=== PATIENT | female | born 1960 | race Caucasian/White ===

== ENCOUNTER 2016-11-06 16:09 | Emergency (ER) | payer MEDICAID ==
[2016-11-06 16:37] VITALS: BP 125/105
--- NOTE | 2016-11-06 17:36 | EDM.PDOC ---
ED HPI HEAD INJURY - General Chief Complaint: Head Injury Stated Complaint: FELL OUT OF BED/HIT HEAD Time Seen by Provider: 11/06/16 16:50 Source: Reports: Patient, Family History Limitations: Reports: No limitations - History of Present Illness INITIAL COMMENTS - FREE TEXT/NARRATIVE: 56-year-old female rolled out of bed last night striking her right head against the corner of a night stand behind her ear. Today she has some bruising and swelling and seems slightly confused so her wanted her checked out. She looks active and neurologically normal. No nausea or vomiting, she does not believe she had loss of consciousness. Location: Reports: occipital Severity: mild Place: home Associated Symptoms: Reports: confused. Denies: nausea/vomiting, weakness, loss of consciousness, dizziness - Related Data Allergies/ADRs: Allergies Allergy/AdvReac Type Severity Reaction Status Date / Time bacitracin [From Cortisporin] Allergy Itching Verified 04/05/16 13:17 bacitracin zinc Allergy Itching Verified 04/05/16 13:17 [From Cortisporin] erythromycin base Allergy Hives Verified 04/05/16 13:17 [Erythromycin Base] hydrocortisone Allergy Itching Verified 04/05/16 13:17 [From Cortisporin] neomycin [From Cortisporin] Allergy Itching Verified 04/05/16 13:17 neomycin sulfate Allergy Itching Verified 04/05/16 13:17 [From Cortisporin] polymyxin B Allergy Itching Verified 04/05/16 13:17 [From Cortisporin] polymyxin B sulfate Allergy Itching Verified 04/05/16 13:17 [From Cortisporin] sulfamethoxazole Allergy Vomiting Verified 04/05/16 13:17 [From Bactrim] trimethoprim [From Bactrim] Allergy Vomiting Verified 04/05/16 13:17 Home Meds: Home Meds Sertraline HCl 100 mg PO DAILY 04/06/13 [History] Cholecalciferol (Vitamin D3) [Vitamin D3] 1,000 unit PO DAILY 07/15/13 [History] [place]-3 Fatty Acids [[place]-3] 1,000 mg PO DAILY 07/15/13 [History] Lactobacillus Acidophilus [Probiotic] 1 each PO TID 07/23/14 [History] Cyclobenzaprine HCl [Cyclobenzaprine HCl] 10 mg PO ASDIRECTED PRN 11/06/16 [ History] Past Medical History HEENT History: Reports: Hard of hearing, Impaired vision Cardiovascular History: Reports: None Respiratory History: Reports: None Gastrointestinal History: Reports: Chronic diarrhea Genitourinary History: Reports: None 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: Musculoskeletal History: Reports: Other (see below) Other Musculoskeletal History: osteopenia Neurological History: Reports: Head trauma Psychiatric History: Reports: None Endocrine/Metabolic History: Reports: None Hematologic History: Reports: None Immunologic History: Reports: None Oncologic (Cancer) History: Reports: Basal cell carcinoma Dermatologic History: Reports: None - Infectious Disease History Infectious Disease History: Reports: None - Past Surgical History Head Surgeries/Procedures: Reports: None HEENT Surgical History: Reports: Other (see below) Other HEENT Surgeries/Procedures: PT HAD RIGHT EAR SURGERY Cardiovascular Surgical History: Reports: None GI Surgical History: Reports: Colonoscopy Female Surgical History: Reports: section, D&C Endocrine Surgical History: Reports: None Neurological Surgical History: Reports: None Musculoskeletal Surgical History: Reports: Knee replacement, Other (see below) Other Musculoskeletal Surgeries/Procedures:: left arm plates and screws Oncologic Surgical History: Reports: None Dermatological Surgical History: Reports: None Social & Family History - Family History HEENT: Reports: Glaucoma, Impaired vision Cardiac: Reports: CAD, [place] Respiratory: Reports: None GI: Reports: GERD : Reports: None OBGYN: Reports: None Musculoskeletal: Reports: None Neurological: Reports: None Psychiatric: Reports: None Endocrine/Metabolic: Reports: Hypothyroidism Hematologic: Reports: None Immunologic: Reports: None Dermatologic: Reports: None Oncologic: Reports: None - Tobacco Use Smoking Status *Q: Never Smoker Years of Tobacco use: 6 Packs/Tins Daily: 1 Used Tobacco, but Quit: Yes Month Tobacco Last Used: 34 YEARS AGO Second Hand Smoke Exposure: No - Caffeine Use Caffeine Use: Reports: Energy drinks - Alcohol Use Days Per Week of Alcohol Use: 7 Number of Drinks Per Day: 3 Total Drinks Per Week: 21 - Recreational Drug Use Recreational Drug Use: No ED ROS GENERAL - Review of Systems Review Of Systems: See Below Constitutional: Denies: fever, chills, malaise HEENT: Reports: Other (Bruising and pain behind her right ear) Respiratory: Reports: No Symptoms Cardiovascular: Reports: No symptoms GI/Abdominal: Reports: No symptoms Skin: Reports: bruising Neurological: Reports: Headache ED EXAM, HEAD INJURY - Physical Exam Exam: See Below Exam Limited By: No limitations General Appearance: alert, no apparent distress Head: scalp ecchymosis (She has scalp ecchymosis behind the right ear with slight swelling and hematoma) Eyes: bilateral eye: normal inspection Neck: non-tender, full range of motion Respiratory: no respiratory distress, lungs clear Cardiovascular: regular rate, rhythm Extremities: no evidence of injury Neurologic: no motor/sensory deficits, normal mood/affect, other (Romberg is negative, no pronator drift) Course - Vital Signs Last Recorded V/S: Last Vital Signs Temp 97.9 F 11/06/16 16:45 Pulse 94 11/06/16 16:45 Resp 16 11/06/16 16:45 BP 125/105 H 11/06/16 16:45 Pulse Ox 100 11/06/16 16:45 - Re-Assessments/Exams Free Text/Narrative Re-Assessment/Exam: 11/06/16 17:[address] of the head was done without contrast which showed a scalp hematoma but no other acute findings. Patient was reassured and can treat the symptoms locally with cool compresses and ibuprofen. Departure - Departure Time of Disposition: 17:41 Disposition: Home, Self-Care 01 Condition: good Clinical Impression: Scalp hematoma Qualifiers: Encounter type: initial encounter Qualified Code(s): S00.03XA - Contusion of scalp, initial encounter Instructions: Head Injury, Adult, [id number] Referrals: PCP,None [Primary Care Provider] - Forms: ED Department Discharge Care Plan Goals: Cool compresses to the bruised area may help along with ibuprofen. Increase activity as tolerated and return anytime if worsening or concerns.
== END 2016-11-06 17:41 | disposition home or self-care (01) ==
LOC: JP.ED 16:09
DX: S00.03XA Contusion of scalp, initial encounter (principal); Z79.899 Other long term (current) drug therapy; Z88.8 Allergy status to other drugs, medicaments and biological substances; W22.8XXA Striking against or struck by other objects, initial encounter; W06.XXXA Fall from bed, initial encounter; Z88.1 Allergy status to other antibiotic agents
CPT/HCPCS: 70450; 99284-25

== ENCOUNTER 2020-02-06 16:55 | Emergency (ER) | payer MEDICAID ==
--- NOTE | 2020-02-06 17:36 | EDM.PDOC ---
ED HPI GENERAL MEDICAL PROBLEM - General Chief Complaint: Lower Extremity Injury/Pain Stated Complaint: MEDICAL VIA NORTH Time Seen by Provider: 02/06/20 17:31 Source of Information: Reports: Patient History Limitations: Reports: Altered Mental Status (alcohol intoxication and medicated by EMS (Fentanyl and Ketamine)) - History of Present Illness INITIAL COMMENTS - FREE TEXT/NARRATIVE: 59 year old female present to [facility] via [facility] due to fall and right leg pain. Patient called EMS due to fall and leg pain. Patient has been evaluated for her right knee pain. She is unsure if her knee gave out. Patient was unable to report to EMS how she fell. Patient was given IV pain medications (fentanyl and ketamine) by EMS. Patient is unable to give any account of her fall or is aware that she leg hurts. No one was home at the time of her fall, unwitnessed. Patient is unable to answer question with any valid answers. Unable to obtain ROS current, past medical history, medications. Patient denies pain and moving legs during examination. Right Hip Pain Score (Numeric/FACES): 5 - Related Data Allergies Allergy/AdvReac Type Severity Reaction Status Date / Time bacitracin [From Cortisporin] Allergy Itching Verified 02/06/20 17:02 bacitracin zinc Allergy Itching Verified 02/06/20 17:02 [From Cortisporin] erythromycin base Allergy Hives Verified 02/06/20 17:02 [Erythromycin Base] hydrocortisone Allergy Itching Verified 02/06/20 17:02 [From Cortisporin] neomycin [From Cortisporin] Allergy Itching Verified 02/06/20 17:02 neomycin sulfate Allergy Itching Verified 02/06/20 17:02 [From Cortisporin] polymyxin B Allergy Itching Verified 02/06/20 17:02 [From Cortisporin] polymyxin B sulfate Allergy Itching Verified 02/06/20 17:02 [From Cortisporin] sulfamethoxazole Allergy Vomiting Verified 02/06/20 17:02 [From Bactrim] trimethoprim [From Bactrim] Allergy Vomiting Verified 02/06/20 17:02 Home Meds: Home Meds Sertraline HCl 100 mg PO DAILY 04/06/13 [History] Cholecalciferol (Vitamin D3) [Vitamin D3] 1,000 unit PO DAILY 12/18/13 [History] [place]-3 Fatty Acids [[place]-3] 1,000 mg PO DAILY 07/15/13 [History] Lactobacillus Acidophilus [Probiotic] 1 each PO TID 07/23/14 [History] Omeprazole 40 mg PO DAILY 05/07/18 [History] Latanoprost 1 drop EYEBOTH BEDTIME 02/06/20 [History] Past Medical History HEENT History: Reports: Hard of Hearing, Impaired Vision Other HEENT History: tympanic perforation. 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: Musculoskeletal History: Reports: Fracture, Osteoarthritis, Other (See Below) Other Musculoskeletal History: osteopenia right wrist carpal tunnel Neurological History: Reports: Head Trauma Psychiatric History: Reports: Addiction, Depression, PTSD Other Psychiatric History: ETOH Endocrine/Metabolic History: Reports: Obesity/BMI 30+, Other (See Below) Other Endocrine/Metabolic History: thyroid nodule Hematologic History: Reports: None Other Hematologic History: macrocytosis Immunologic History: Reports: None Oncologic (Cancer) History: Reports: Basal Cell Carcinoma Dermatologic History: Reports: None - Infectious Disease History Infectious Disease History: Reports: MRSA - Past Surgical History HEENT Surgical History: Reports: None Cardiovascular Surgical History: Reports: None GI Surgical History: Reports: None Female Surgical History: Reports: Section, D&C Endocrine Surgical History: Reports: None Neurological Surgical History: Reports: None Musculoskeletal Surgical History: Reports: Knee Replacement, Other (See Below) Oncologic Surgical History: Reports: None Dermatological Surgical History: Reports: None Social & Family History - Family History HEENT: Reports: Glaucoma, Impaired Vision Cardiac: Reports: CAD, [place] Respiratory: Reports: None GI: Reports: GERD : Reports: None OBGYN: Reports: None Musculoskeletal: Reports: None Neurological: Reports: None Psychiatric: Reports: None Endocrine/Metabolic: Reports: Hypothyroidism Hematologic: Reports: None Immunologic: Reports: None Dermatologic: Reports: None Oncologic: Reports: None - Tobacco Use Smoking Status *Q: Never Smoker - Caffeine Use Caffeine Use: Reports: None - Alcohol Use Days Per Week of Alcohol Use: 7 Number of Drinks Per Day: 7 Total Drinks Per Week: 49 - Recreational Drug Use Recreational Drug Use: No Review of Systems - Review of Systems Review Of Systems: Unable To Obtain Reason Not Obtained: intoxicated and medicated per EMS ED EXAM, GENERAL - Physical Exam Exam: See Below Exam Limited By: Altered Mental Status (alchol intoxication and medicated by EMS fentanyl and ketamine) General Appearance: Alert, Other (medicated and slurring speach. Nonsensical answers with clear words and some slurring. ) Eye Exam: Bilateral Eye: EOMI Ears: Normal External Exam, Hearing Grossly Normal Nose: Normal Inspection Throat/Mouth: Normal Inspection, Other (mouth dry) Head: Atraumatic Neck: Normal Inspection Respiratory/Chest: Lungs Clear Cardiovascular: Regular Rate, Rhythm GI/Abdominal: Normal Bowel Sounds, Soft, Non-Tender (Female) Exam: Deferred Rectal (Female) Exam: Deferred Extremities: Other (Right leg seems to be shortened and externally rotated but patient dnies pain with palpation or movement. Body language tells a different story and seems to wince with pain and movement. ) Neurological: Inattentive, Confused Course - Vital Signs Last Recorded V/S: Last Vital Signs Temp 36.2 C 02/06/20 20:35 Pulse 94 02/06/20 21:13 Resp 16 02/06/20 21:13 BP 117/85 02/06/20 21:13 Pulse Ox 91 L 02/06/20 21:13 - Orders/Labs/Meds Orders: Active Orders 24 hr Category Date Time Status [place] Catheter Insertion [Insert Urinary Catheter] [OM. Care 02/06/20 19:45 Ordered PC] Q24H Urinary Catheter Assessment [RC] ASDIRECTED Care 02/06/20 19:39 Active Sodium Chloride 0.9% [Normal Saline] 1,000 ml Med 02/06/20 18:45 Active IV ASDIRECTED Medication Orders Sodium Chloride (Normal Saline) 1,000 mls @ 500 mls/hr IV ASDIRECTED WOODROW Last Admin: 02/06/20 19:47 Dose: 500 mls/hr Documented by: SHAYNE Labs: Laboratory Tests 02/06/20 02/06/20 02/06/20 Range/Units 18:10 18:10 18:10 WBC 7.1 (4.5-11.0) K/uL RBC 2.96 L (3.30-5.50) M/uL Hgb 9.9 L (12.0-15.0) g/dL Hct 30.5 L (36.0-48.0) % MCV 103 H (80-98) fL MCH 33 H (27-31) pg MCHC 33 (32-36) % Plt Count 90 L (150-400) K/uL Neut % (Auto) 86 H (36-66) % Lymph % (Auto) 7 L (24-44) % Scott % (Auto) 7 H (2-6) % Eos % (Auto) 0 L (2-4) % Baso % (Auto) 1 (0-1) % PT (9.5-12.0) sec INR (0.80-1.20) APTT 26.7 L (27.0-36.0) sec Sodium 139 L (140-148) mmol/L Potassium 4.2 (3.6-5.2) mmol/L Chloride 101 (100-108) mmol/L Carbon Dioxide 22 (21-32) mmol/L Anion Gap 20.2 H (5.0-14.0) mmol/L BUN 9 (7-18) mg/dL Creatinine 0.8 (0.6-1.0) mg/dL Est Cr Clr Drug Dosing 55.06 mL/min Estimated GFR (MDRD) > 60 (>60) Glucose 140 H (74-106) mg/dL Calcium 8.4 L (8.5-10.1) mg/dL Ethyl Alcohol mg/dL 02/06/20 02/06/20 Range/Units 18:10 18:10 WBC (4.5-11.0) K/uL RBC (3.30-5.50) M/uL Hgb (12.0-15.0) g/dL Hct (36.0-48.0) % MCV (80-98) fL MCH (27-31) pg MCHC (32-36) % Plt Count (150-400) K/uL Neut % (Auto) (36-66) % Lymph % (Auto) (24-44) % Scott % (Auto) (2-6) % Eos % (Auto) (2-4) % Baso % (Auto) (0-1) % PT 11.1 (9.5-12.0) sec INR 1.03 (0.80-1.20) APTT (27.0-36.0) sec Sodium (140-148) mmol/L Potassium (3.6-5.2) mmol/L Chloride (100-108) mmol/L Carbon Dioxide (21-32) mmol/L Anion Gap (5.0-14.0) mmol/L BUN (7-18) mg/dL Creatinine (0.6-1.0) mg/dL Est Cr Clr Drug Dosing mL/min Estimated GFR (MDRD) (>60) Glucose (74-106) mg/dL Calcium (8.5-10.1) mg/dL Ethyl Alcohol 227 mg/dL Meds: Medications Generic Name Dose Route Start Last Admin Trade Name Freq PRN Reason Stop Dose Admin Sodium Chloride 1,000 mls @ 500 mls/hr 02/06/20 18:45 02/06/20 19:47 Normal Saline IV 500 mls/hr ASDIRECTED WOODROW Administration Discontinued Medications Generic Name Dose Route Start Last Admin Trade Name Freq PRN Reason Stop Dose Admin Fentanyl 50 mcg 02/06/20 19:40 Sublimaze IVPUSH 02/06/20 19:41 ONETIME ONE Lorazepam 2 mg 02/06/20 19:19 02/06/20 19:48 Ativan IVPUSH 02/06/20 19:20 2 mg ONETIME ONE Administration - Radiology Interpretation Free Text/Narrative:: Right hip/knee XR: noting mid shaft femur fracture with 2-3cm displacement. Images read by me during ER visit and reviewed with ER MD available. - Re-Assessments/Exams Free Text/Narrative Re-Assessment/Exam: Family requested patient be kept closer to home and would like her transferred to [facility] if care can be completed. Called [facility]: Got a voice mail to leave a message x 2. Left a message for return phone call about orthopedic transfer. 02/06/20 19:14 Son is present in ER exam room. Showed son the film noting 2-3 cm displaced with overlap of a right mid-shaft femur fracture. Son verbalized concern about mother starting to get DT shakes and seizures with concern regarding Alcohol withdrawal seizures. Patient was hospitalized in the ICU for 7 days, without need for intubation due to alcohol use during last hospitalization. Mother has gone to three different alcohol treatment facilities which she has left early and not completed full inpatient treatment course. Family may be interested in reconsidering revisiting alcohol treatment options. 02/06/20 19:21 [facility] returned phone call regarding transfer for Chronic Alcoholism with known h/o DT withdrawal in addition to midshaft right femur fracture due to fall. Hospitalist Nasir [place] acceptance to ICU if CT Head is clear, Contact Nurse Regrind Mill Operator with CT report. Dr Garcia, manager social responsibility Orthopedist is contacted. Orthopedic surgeon requested hair traction splint applied for transport to ensure immobilization. Update son regarding Nasir acceptance if CT Head is clear. Patient given Ativan 2mg for concerns regarding withdrawal, resting. 02/06/20 19:35-20:00 Son was informed that CT Head showed on acute trauma sequelae, or head bleed. Called [facility] regarding normal CT head and transfer was requested. Right leg traction splint was applied to bring leg to length and improved pain. Patient tolerated well with Ativan. Fentanyl is ordered if needed for additional pain relief. Patient remains vitally stable and appears comfortable despite acute femur fracture. 02/06/20 20:35 EMS arrived for transport. 02/06/20 21:26 Departure - Departure Time of Disposition: 21:25 Disposition: DC/Tfer to [facility] 02 Clinical Impression: Alcohol abuse, Alcohol withdrawal seizure Fall Qualifiers: Encounter type: initial encounter Qualified Code(s): W19.XXXA - Unspecified fall, initial encounter Femur fracture, right Qualifiers: Femur location: shaft Fracture type: closed Fracture morphology: transverse - Discharge Information Instructions: Alcohol Use Disorder, Femoral Shaft Fracture Referrals: PCP,None [Primary Care Provider] - Forms: ED Department Discharge Sepsis Event Note (ED) - Evaluation Sepsis Screening Result: No Definite Risk - Focused Exam Vital Signs: Vital Signs Temp Pulse Resp BP Pulse Ox 02/06/20 21:13 94 16 117/85 91 L 02/06/20 20:35 36.2 C 91 16 123/80 95 02/06/20 19:32 94 16 128/74 95 02/06/20 16:59 35.6 C L 94 16 133/63 95 - My Orders Last 24 Hours: My Active Orders 02/06/20 18:45 Sodium Chloride 0.9% [Normal Saline] 1,000 ml IV ASDIRECTED 02/06/20 19:39 Urinary Catheter Assessment [RC] ASDIRECTED 02/06/20 19:45 [place] Catheter Insertion [Insert Urinary Catheter] [OM.PC] Q24H - Assessment/Plan Last 24 Hours: My Active Orders 02/06/20 18:45 Sodium Chloride 0.9% [Normal Saline] 1,000 ml IV ASDIRECTED 02/06/20 19:39 Urinary Catheter Assessment [RC] ASDIRECTED 02/06/20 19:45 [place] Catheter Insertion [Insert Urinary Catheter] [OM.PC] Q24H
[2020-02-06] MEDS ORDERED: Sodium Chloride 0.9% 1,000 ML IV SCH (18:45)
[2020-02-06] MEDS ORDERED: LORazepam 2 MG/ML SDV IVPUSH ONE (19:19)
[2020-02-06] MEDS ORDERED: fentaNYL 100 MCG/2 ML SDV IVPUSH ONE (19:40)
--- NOTE | 2020-02-06 19:49 | CRLCR ---
Indication: Trauma Technique: An AP view of the pelvis was obtained as well as a lateral view of the right hip. Comparison: None Findings: The pelvis proper and the right hip joint proper appear normal. There is a transverse fracture of the right femur which is angulated and foreshortened. This is located approximately 17 centimeters distal to the greater trochanter. Impression: Right femur fracture. The hip joint proper and the pelvis appear normal Dictated by Shaan Iqbal MD @ Feb 06 2020 7:46PM Signed by Dr. Shaan Iqbal @ Feb 06 2020 7:47PM
--- NOTE | 2020-02-06 20:30 | CRLCT ---
INDICATION: Fall COMPARISON: November 06, 2016 TECHNIQUE: CT examination of the head was performed as axial sections without intravenous contrast. Images were obtained from the vertex of the skull through the skull base. Please note that all CT scans at this facility use dose modulation, iterative reconstruction, and/or weight-based dosing when appropriate to reduce radiation dose to as low as reasonably achievable. FINDINGS: The brain shows no sign of mass lesion, mass effect, hemorrhage, or edema. There are involutional changes. There is moderate cortical atrophy and there is moderate white matter disease. There is no hydrocephalus. There is also cerebellar atrophy. The visualized portions of the orbits are normal in appearance. The osseous structures are normal in appearance with no sign of abnormality in the skull base or calvarium. IMPRESSION: Involutional changes. No acute-appearing findings. Please note that all CT scans at this facility use dose modulation, iterative reconstruction, and/or weight-based dosing when appropriate to reduce radiation dose to as low as reasonably achievable. Dictated by Shaan Iqbal MD @ Feb 06 2020 8:27PM Signed by Dr. Shaan Iqbal @ Feb 06 2020 8:29PM
[2020-02-06 21:14] VITALS: BP 117/85; PULSE 94
== END 2020-02-06 22:21 ==
LOC: JP.ED 16:55
DX: S72.321A Displaced transverse fracture of shaft of right femur, initial encounter for closed fracture (principal); F10.239 Alcohol dependence with withdrawal, unspecified; R56.9 Unspecified convulsions; Z88.1 Allergy status to other antibiotic agents; Z88.2 Allergy status to sulfonamides; Z79.899 Other long term (current) drug therapy; E66.9 Obesity, unspecified; F32.9 Major depressive disorder, single episode, unspecified; F43.10 Post-traumatic stress disorder, unspecified; Z68.28 Body mass index [BMI] 28.0-28.9, adult; Y90.7 Blood alcohol level of 200-239 mg/100 ml; W19.XXXA Unspecified fall, initial encounter; Y92.009 Unspecified place in unspecified non-institutional (private) residence as the place of occurrence of the external cause
CPT/HCPCS: 36415; 51702; 70450; 73501; 80048; 80307; 85025; 85610; 85730; 96361; 96374; 99285; J2060; J7030

== ENCOUNTER → 2020-06-03 | Day surgery (SDC) | payer MEDICAID ==
[~2020-06-03] MED LIST: Midazolam 1 MG/ML 2 ML SDV ONE; Propofol 200 MG/20 ML SDV ONE; Sodium Chloride 0.9% 1,000 ML IV SCH; fentaNYL 100 MCG/2 ML SDV ONE
[2020-06-03 10:28] VITALS: BP 104/64; PULSE 85
--- NOTE | 2020-06-03 12:48 | OR ---
DATE OF PROCEDURE: 06/03/2020 SURGEON: Naresh Mancia MD PROCEDURE: Esophagogastroduodenoscopy. FINDINGS: 1. Small concentric ring at the gastroesophageal junction (biopsied multiple times using cold biopsy forceps). 2. Dilation of ring with 45-Norwegian. COMPLICATIONS: None. COOK ICE CREAM: None. ANESTHESIA: MAC. PREOPERATIVE DIAGNOSIS: Dysphagia. POSTOPERATIVE DIAGNOSIS: Dysphagia. RISKS: Risks, benefits, alternatives, and limitations including but not limited to infection, bleeding, and perforation were explained to the patient, and she wished to proceed. PROCEDURE IN DETAIL: The patient was placed in left lateral decubitus position. EGD scope was introduced and advanced atraumatically to second part of the duodenum. No evidence of duodenitis or ulceration. Within stomach itself, no evidence of gastritis or ulceration. The patient had a small hiatal hernia. At the GE junction, there was a ring noted. This was biopsied in multiple quadrants. This was then dilated with a 45-Norwegian balloon to stage 3. No evidence of enterotomy or injury was noted. The esophagus was normal. The air was removed. The patient the tolerated the procedure well. Naresh Mancia MD /[id number]
== END ==
LOC: JP.SDS 06:58
PROVIDERS: ATTEND Surgery
DX: K31.89 Other diseases of stomach and duodenum (principal); K22.2 Esophageal obstruction; K44.9 Diaphragmatic hernia without obstruction or gangrene
CPT/HCPCS: 43239; 43249; J2250; J2704; J3010; J7030; 88305; 88312

== ENCOUNTER 2021-06-26 11:22 | Emergency (ER) | payer MEDICAID ==
[2021-06-26 13:01] VITALS: BP 117/90; PULSE 106
[2021-06-26] MEDS ORDERED: Ketorolac 30 MG/ML SDV IM ONE (13:42)
[2021-06-26] MEDS ORDERED: Acetaminophen/HYDROcodone 325-5 MG Tab PO ONE (13:42)
[2021-06-26] MEDS ORDERED: Gabapentin 100 MG Cap PO ONE (13:43)
--- NOTE | 2021-06-26 13:50 | EDM.PDOC ---
ED HPI GENERAL MEDICAL PROBLEM - General Chief Complaint: Lower Extremity Injury/Pain Stated Complaint: PAIN IN LEG Time Seen by Provider: 06/26/21 13:30 Source of Information: Reports: Patient, Old Records, RN History Limitations: Reports: No Limitations - History of Present Illness INITIAL COMMENTS - FREE TEXT/NARRATIVE: 61 yo female presents with L lateral thigh pain. Sx's getting worse over the past week not associated with injury. Not painful to touch this area. Is hard to walk. 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) - Related Data Allergies Allergy/AdvReac Type Severity Reaction Status Date / Time bacitracin [From Cortisporin] Allergy Itching Verified 06/26/21 13:12 bacitracin zinc Allergy Itching Verified 06/26/21 13:12 [From Cortisporin] erythromycin base Allergy Hives Verified 06/26/21 13:12 [Erythromycin Base] hydrocortisone Allergy Itching Verified 06/26/21 13:12 [From Cortisporin] neomycin [From Cortisporin] Allergy Itching Verified 06/26/21 13:12 neomycin sulfate Allergy Itching Verified 06/26/21 13:12 [From Cortisporin] polymyxin B Allergy Itching Verified 06/26/21 13:12 [From Cortisporin] polymyxin B sulfate Allergy Itching Verified 06/26/21 13:12 [From Cortisporin] sulfamethoxazole Allergy Vomiting Verified 06/26/21 13:12 [From Bactrim] trimethoprim [From Bactrim] Allergy Vomiting Verified 06/26/21 13:12 Home Meds: Home Meds Sertraline HCl 100 mg PO DAILY 04/06/13 [History] Cholecalciferol (Vitamin D3) [Vitamin D3] 2,000 unit PO DAILY 07/15/13 [History] Latanoprost 1 drop EYEBOTH BEDTIME 02/06/20 [History] Acetaminophen [Tylenol] 650 mg PO Q6H PRN 06/02/20 [History] Alendronate Sodium [Fosamax] 70 mg PO Q7D 06/02/20 [History] Gabapentin [Neurontin] 300 mg PO BID 06/02/20 [History] Multivitamin [Multi-Vitamin Daily] 1 each PO BID 06/02/20 [History] Naltrexone 25 - 50 mg PO DAILY 06/02/20 [History] Past Medical History HEENT History: Reports: Hard of Hearing, Impaired Vision Other HEENT History: tympanic perforation. 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: Musculoskeletal History: Reports: Fracture, Osteoarthritis, Other (See Below) Other Musculoskeletal History: osteopenia right wrist carpal tunnel Neurological History: Reports: Head Trauma Psychiatric History: Reports: Addiction, Depression, PTSD Other Psychiatric History: ETOH Endocrine/Metabolic History: Reports: Obesity/BMI 30+, Vitamin D Deficiency, Other (See Below) Other Endocrine/Metabolic History: thyroid nodule Hematologic History: Reports: None Other Hematologic History: macrocytosis Immunologic History: Reports: None Oncologic (Cancer) History: Reports: Basal Cell Carcinoma Dermatologic History: Reports: None - Infectious Disease History Infectious Disease History: Reports: Chicken Pox, MRSA, Shingles - Past Surgical History Head Surgeries/Procedures: Reports: None HEENT Surgical History: Reports: None Other HEENT Surgeries/Procedures: PT HAD RIGHT EAR SURGERY Cardiovascular Surgical History: Reports: None GI Surgical History: Reports: None, Colonoscopy, EGD Female Surgical History: Reports: Section, D&C Endocrine Surgical History: Reports: None Neurological Surgical History: Reports: None Musculoskeletal Surgical History: Reports: Knee Replacement, Other (See Below) Other Musculoskeletal Surgeries/Procedures:: right femur fracture Oncologic Surgical History: Reports: None Dermatological Surgical History: Reports: None Social & Family History - Family History HEENT: Reports: Glaucoma, Impaired Vision Cardiac: Reports: CAD, [place] Respiratory: Reports: None GI: Reports: GERD : Reports: None OBGYN: Reports: None Musculoskeletal: Reports: None Neurological: Reports: None Psychiatric: Reports: None Endocrine/Metabolic: Reports: Hypothyroidism Hematologic: Reports: None Immunologic: Reports: None Dermatologic: Reports: None Oncologic: Reports: None - Tobacco Use Tobacco Use Status *Q: Never Tobacco User Second Hand Smoke Exposure: No - Caffeine Use Caffeine Use: Reports: Coffee, Soda Other Caffeine Use: 2 mountain dew daily. 2 coffee per day - Recreational Drug Use Recreational Drug Use: No Review of Systems - Review of Systems Review Of Systems: See Below Constitutional: Reports: No Symptoms Musculoskeletal: Reports: Leg Pain (L posterior thigh) Skin: Reports: No Symptoms Neurological: Reports: Numbness (intermittent of the L heel) ED EXAM, GENERAL - Physical Exam Exam: See Below Exam Limited By: No Limitations General Appearance: Alert, WD/WN, No Apparent Distress Eye Exam: Bilateral Eye: Normal Inspection Ears: Hearing Grossly Normal Ear Exam: Bilateral Ear: Auricle Normal, Canal Normal Nose: Normal Inspection, No Blood Throat/Mouth: Normal Lips, Normal Voice, No Airway Compromise Head: Atraumatic, Normocephalic Neck: Normal Inspection Cardiovascular: Regular Rate, Rhythm, No Edema, Tachycardia Back Exam: Normal Inspection. No: CVA Tenderness (R), CVA Tenderness (L), Vertebral Tenderness Extremities: Normal Inspection, Normal Range of Motion, Non-Tender, No Pedal Edema, Other (tender L sciatic notch) Neurological: Alert, Oriented, CN II-XII Intact, Normal Cognition, No Motor/Sensory Deficits, Other (straight leg raising positive on the L) Psychiatric: Normal Affect, Normal Mood Skin Exam: Warm, Dry, Intact, Normal Color, No Rash Course - Vital Signs Last Recorded V/S: Last Vital Signs Temp 36.6 C 06/26/21 13:15 Pulse 106 H 06/26/21 13:15 Resp 16 06/26/21 13:15 BP 117/90 06/26/21 13:15 Pulse Ox 97 06/26/21 13:15 - Orders/Labs/Meds Orders: Active Orders 24 hr Category Date Time Status VL Duplex Lwr Ext Veins Ltd Lt [US] Stat Exams 06/26/21 14:21 Ordered Labs: Laboratory Tests 06/26/21 Range/Units 12:38 D-Dimer, Quantitative 1153.35 H (0.0-500.0) ng/mL Meds: Medications Discontinued Medications Generic Name Dose Route Start Last Admin Trade Name Freq PRN Reason Stop Dose Admin Hydrocodone Bitart/Acetaminophen 1 tab 06/26/21 13:42 06/26/21 14:22 Acetaminophen/Hydrocodone 325-5 Mg Tab PO 06/26/21 13:43 1 tab ONETIME ONE Administration Gabapentin 200 mg 06/26/21 13:43 06/26/21 14:22 Gabapentin 100 Mg Cap PO 06/26/21 13:44 200 mg ONETIME ONE Administration Ketorolac Tromethamine 30 mg 06/26/21 13:42 06/26/21 14:22 Ketorolac 30 Mg/Ml Sdv IM 06/26/21 13:43 30 mg ONETIME ONE Administration - Radiology Interpretation Free Text/Narrative:: Venous doppler L leg- Departure - Departure Time of Disposition: 15:51 Disposition: Home, Self-Care 01 Condition: Good Clinical Impression: Sciatica of left side - Discharge Information *PRESCRIPTION DRUG MONITORING PROGRAM REVIEWED*: Not Applicable *COPY OF PRESCRIPTION DRUG MONITORING REPORT IN PATIENT RAYMOND: Not Applicable Referrals: PCP,None [Primary Care Provider] - Forms: ED Department Discharge Additional Instructions: Take Aleve 2 every 12 hrs with food. Add acetaminophen for added relief. Take gabapentin as directed for more pain relief. F/U with your chiropractor and/or family doctor later this week. Sepsis Event Note (ED) - Evaluation Sepsis Screening Result: No Definite Risk - Focused Exam Vital Signs: Vital Signs Temp Pulse Resp BP Pulse Ox 06/26/21 13:15 36.6 C 106 H 16 117/90 97 06/26/21 13:00 36.6 C 106 H 16 117/90 97 - My Orders Last 24 Hours: My Active Orders 06/26/21 14:21 VL Duplex Lwr Ext Veins Ltd Lt [US] Stat - Assessment/Plan Last 24 Hours: My Active Orders 06/26/21 14:21 VL Duplex Lwr Ext Veins Ltd Lt [US] Stat
--- NOTE | 2021-06-27 09:02 | US ---
VL Duplex Lwr Ext Veins Ltd Lt INDICATION: elevated d-dimer, L thigh pain FINDINGS: Ultrasound examination of the lower extremity using Doppler and compressive technique demonstrates that the common femoral, femoral, and popliteal veins are patent, and negative for thrombus. The calf veins were segmentally visualized and are negative where seen. IMPRESSION: Negative for deep venous thrombosis.
== END 2021-06-26 16:16 | disposition home or self-care (01) ==
LOC: JP.ED 11:22
DX: M54.32 Sciatica, left side (principal); E66.9 Obesity, unspecified; Z88.1 Allergy status to other antibiotic agents; Z68.29 Body mass index [BMI] 29.0-29.9, adult
CPT/HCPCS: 36415; 85379; 93971; 96372; 99284; A9270; J1885

== ENCOUNTER 2021-07-09 12:17 | Emergency (ER) | payer MEDICAID ==
[2021-07-09 12:40] VITALS: BP 107/66; PULSE 98
--- NOTE | 2021-07-09 13:06 | EDM.PDOC ---
ED HPI GENERAL MEDICAL PROBLEM - General Chief Complaint: Lower Extremity Injury/Pain Stated Complaint: BACK LEFT THIGH PAIN Time Seen by Provider: 07/09/21 12:45 Source of Information: Reports: Patient History Limitations: Reports: No Limitations - History of Present Illness INITIAL COMMENTS - FREE TEXT/NARRATIVE: 61-year-old female with left buttock and thigh pain for the past couple of months. She is undergoing physical therapy, several evaluations including an ultrasound, and has an MRI ordered but not yet scheduled. She went into [facility] 4 days ago and got a shot of Toradol and was placed on oral Toradol and that was helpful but it is still hurting and she is afraid of running out of Toradol tomorrow and does not know what she can do next. She has no increase in pain, no new injury, no bruising but just wants answers. Onset: Unknown/Unsure Duration: Chronic (Symptoms have been ongoing for 2 months) Location: Reports: Lower Extremity, Left Associated Symptoms: Reports: No Other Symptoms Left Leg Pain Score (Numeric/FACES): 5 - Related Data Allergies Allergy/AdvReac Type Severity Reaction Status Date / Time bacitracin [From Cortisporin] Allergy Itching Verified 06/26/21 13:12 bacitracin zinc Allergy Itching Verified 06/26/21 13:12 [From Cortisporin] erythromycin base Allergy Hives Verified 06/26/21 13:12 [Erythromycin Base] hydrocortisone Allergy Itching Verified 06/26/21 13:12 [From Cortisporin] neomycin [From Cortisporin] Allergy Itching Verified 06/26/21 13:12 neomycin sulfate Allergy Itching Verified 06/26/21 13:12 [From Cortisporin] polymyxin B Allergy Itching Verified 06/26/21 13:12 [From Cortisporin] polymyxin B sulfate Allergy Itching Verified 06/26/21 13:12 [From Cortisporin] sulfamethoxazole Allergy Vomiting Verified 06/26/21 13:12 [From Bactrim] trimethoprim [From Bactrim] Allergy Vomiting Verified 06/26/21 13:12 Home Meds: Home Meds Sertraline HCl 100 mg PO DAILY 04/06/13 [History] Cholecalciferol (Vitamin D3) [Vitamin D3] 2,000 unit PO DAILY 07/15/13 [History] Latanoprost 1 drop EYEBOTH BEDTIME 02/06/20 [History] Acetaminophen [Tylenol] 650 mg PO Q6H PRN 06/02/20 [History] Alendronate Sodium [Fosamax] 70 mg PO Q7D 06/02/20 [History] Gabapentin [Neurontin] 300 mg PO BID 06/02/20 [History] Multivitamin [Multi-Vitamin Daily] 1 each PO BID 06/02/20 [History] Naltrexone 25 - 50 mg PO DAILY 06/02/20 [History] Gabapentin 300 mg PO TID PRN #20 solution 06/26/21 [Rx] Past Medical History HEENT History: Reports: Hard of Hearing, Impaired Vision Other HEENT History: tympanic perforation. 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: Musculoskeletal History: Reports: Fracture, Osteoarthritis, Other (See Below) Other Musculoskeletal History: osteopenia right wrist carpal tunnel Neurological History: Reports: Head Trauma Psychiatric History: Reports: Addiction, Depression, PTSD Other Psychiatric History: ETOH Endocrine/Metabolic History: Reports: Obesity/BMI 30+, Vitamin D Deficiency, Other (See Below) Other Endocrine/Metabolic History: thyroid nodule Hematologic History: Reports: None Other Hematologic History: macrocytosis Immunologic History: Reports: None Oncologic (Cancer) History: Reports: Basal Cell Carcinoma Dermatologic History: Reports: None - Infectious Disease History Infectious Disease History: Reports: Chicken Pox, MRSA, Shingles - Past Surgical History Head Surgeries/Procedures: Reports: None HEENT Surgical History: Reports: None Other HEENT Surgeries/Procedures: PT HAD RIGHT EAR SURGERY Cardiovascular Surgical History: Reports: None GI Surgical History: Reports: None, Colonoscopy, EGD Female Surgical History: Reports: Section, D&C Endocrine Surgical History: Reports: None Neurological Surgical History: Reports: None Musculoskeletal Surgical History: Reports: Knee Replacement, Other (See Below) Other Musculoskeletal Surgeries/Procedures:: right femur fracture Oncologic Surgical History: Reports: None Dermatological Surgical History: Reports: None Social & Family History - Family History HEENT: Reports: Glaucoma, Impaired Vision Cardiac: Reports: CAD, [place] Respiratory: Reports: None GI: Reports: GERD : Reports: None OBGYN: Reports: None Musculoskeletal: Reports: None Neurological: Reports: None Psychiatric: Reports: None Endocrine/Metabolic: Reports: Hypothyroidism Hematologic: Reports: None Immunologic: Reports: None Dermatologic: Reports: None Oncologic: Reports: None - Tobacco Use Tobacco Use Status *Q: Never Tobacco User Second Hand Smoke Exposure: No - Caffeine Use Caffeine Use: Reports: Coffee, Soda Other Caffeine Use: 2 mountain dew daily. 2 coffee per day - Recreational Drug Use Recreational Drug Use: No Review of Systems - Review of Systems Review Of Systems: See Below Constitutional: Denies: Fever Respiratory: Reports: No Symptoms Cardiovascular: Reports: No Symptoms GI/Abdominal: Reports: No Symptoms Musculoskeletal: Reports: Back Pain, Leg Pain Skin: Reports: No Symptoms Neurological: Denies: Paresthesia (No numbness down the left leg) ED EXAM, GENERAL - Physical Exam Exam: See Below Exam Limited By: No Limitations General Appearance: Alert, No Apparent Distress Head: Atraumatic Neck: Supple, Non-Tender Respiratory/Chest: Lungs Clear Cardiovascular: Regular Rate, Rhythm GI/Abdominal: Soft, Non-Tender Extremities: Other (Exam of the lower extremities reveals no significant palpation tenderness to the hamstring area, she does react with tenderness to palpation of the deep left buttock area and it is slightly worse with extension of the hip and straight leg raising. There is no asymmetry of the lower extremities, no ) Neurological: Alert, Oriented, No Motor/Sensory Deficits Psychiatric: Normal Affect, Normal Mood Skin Exam: Warm, Dry Course - Vital Signs Last Recorded V/S: Last Vital Signs Temp 97.7 F 07/09/21 12:39 Pulse 98 07/09/21 12:39 Resp 16 07/09/21 12:39 BP 107/66 07/09/21 12:39 Pulse Ox 97 07/09/21 12:39 - Orders/Labs/Meds Meds: Medications Discontinued Medications Generic Name Dose Route Start Last Admin Trade Name Jacksonq PRN Reason Stop Dose Admin Methylprednisolone Sodium Succinate 125 mg 07/09/21 13:44 07/09/21 13:56 Methylprednisolone Sodium Succinate 125 Mg/2 Ml Sdv IM 07/09/21 13:45 125 mg ONETIME ONE Administration - Re-Assessments/Exams Free Text/Narrative Re-Assessment/Exam: 07/09/21 13:48 This is some type of chronic soft tissue injury such as sciatica or tendinitis of the proximal hamstring or buttock. She can finish her Toradol, I did give her an injection of 125 mg of Solu-Medrol to possibly decrease inflammation as well but other than that there is nothing more to offer from an emergency perspective. She is going to need to follow-up with her primary care, get her MRI scheduled and done, and possibly consider neurology evaluation or EMG. Departure - Departure Time of Disposition: 14:18 Disposition: Home, Self-Care 01 Clinical Impression: Left sided sciatica - Discharge Information Instructions: Sciatica, [id number] Referrals: Liza Campbell DO [Primary Care Provider] - Forms: ED Department Discharge Care Plan Goals: Continue your current medications and contact your primary provider in the next 48 hours to discuss your MRI or further testing that may be beneficial such as a neurology exam of the sciatic nerve. Sepsis Event Note (ED) - Evaluation Sepsis Screening Result: No Definite Risk - Focused Exam Vital Signs: Vital Signs Temp Pulse Resp BP Pulse Ox 07/09/21 12:39 97.7 F 98 16 107/66 97
[2021-07-09] MEDS ORDERED: methylPREDNISolone Sodium Succinate 125 MG/2 ML SDV IM ONE (13:44)
== END 2021-07-09 14:18 | disposition home or self-care (01) ==
LOC: JP.ED 12:17
DX: M54.42 Lumbago with sciatica, left side (principal); E78.00 Pure hypercholesterolemia, unspecified; E66.9 Obesity, unspecified; Z68.30 Body mass index [BMI] 30.0-30.9, adult; Z88.1 Allergy status to other antibiotic agents
CPT/HCPCS: 96372; 99283; J2930

== ENCOUNTER 2021-07-27 19:11 | Emergency (ER) | payer MEDICAID, MEDICARE ==
[2021-07-27 20:19] VITALS: BP 100/61; PULSE 84
[2021-07-27] MEDS ORDERED: Ketorolac 30 MG/ML SDV IM ONE (20:25)
--- NOTE | 2021-07-27 21:34 | CRLCT ---
For Patients: As a result of the 21st Century Cures Act, medical imaging exams and procedure reports are released immediately into your electronic medical record. You may view this report before your referring provider. If you have questions, please contact your health care provider. Clinical INDICATION: Low back pain. Left sacroiliitis. TECHNIQUE: Axial CT cuts were performed from the inferior endplate of T11 to the sacrum. The images were formatted in the sagittal, axial and coronal planes. The T11-12 intervertebral space not fully visualized on this scan. There is no disc herniation, central spinal stenosis or foraminal stenosis. At T12-L1, there is no disc herniation, central spinal stenosis or foraminal stenosis. At L1-2, there is no disc herniation, central spinal stenosis or foraminal stenosis. At L2-3, there is severe intervertebral disc space narrowing with endplate sclerosis and degenerative cysts of the endplates. There is prominent anterior marginal osteophytic spurring on the right. There is a broad shallow disc bulge. The central canal and both neural foramina are adequately patent. At L3-4, there is moderate right hypertrophic degenerative facet arthropathy. There is a broad shallow disc bulge. There is no significant disc herniation, central spinal stenosis or foraminal stenosis. At L4-5, there is moderate right hypertrophic degenerative facet arthropathy. There is thickening of the ligamentum flavum bilaterally worse on the right side. There is a broad disc bulge. The combined effect is causing moderate central canal stenosis. The neural foramina appear adequately patent. At L5-S1, there is severe bilateral degenerative facet arthropathy. There is no significant disc herniation, such spinal stenosis or from stenosis. The sacroiliac joints appear normal. IMPRESSION: 1. Severe spondylosis at the L2-3 level without significant central canal or foraminal stenosis. 2. At L4-5, there is moderate central canal stenosis. 3. At L5-S1, there is severe bilateral degenerative facet arthropathy. 4. The sacroiliac joints appear normal. Please note that all CT scans at this facility use dose modulation, iterative reconstruction, and/or weight-based dosing when appropriate to reduce radiation dose to as low as reasonably achievable. Dictated by West Moore MD @ 07/27/2021 9:31:53 PM (Electronically Signed)
--- NOTE | 2021-07-27 21:53 | EDM.PDOC ---
ED HPI GENERAL MEDICAL PROBLEM - General Chief Complaint: Back Pain or Injury Stated Complaint: LEFT LEG PAIN Time Seen by Provider: 07/27/21 20:10 Source of Information: Reports: Patient, Old Records History Limitations: Reports: No Limitations - History of Present Illness INITIAL COMMENTS - FREE TEXT/NARRATIVE: Vandana is a 61-year-old female presenting to the ED for evaluation of severe worsening low back pain causing pain down the back of the left leg. She states that her legs are suddenly giving out at times. She has been through physical therapy, rn wound care, and medical management without any significant improvement in her symptoms. She has normally cared for by Kiley Ngo, however she is out of town currently and has been seeing Liza Campbell in the clinic. She reports progressive worsening of her low back pain with left-sided sciatica since she had her sledding accident several months ago. It does not appear that she is gone through any imaging of her lumbar spine related to this injury or her progressive worsening of symptoms. She has been taking tizanidine and Celebrex without any improvement. She was on a short course of Toradol which did seem to improve her symptoms. She denies any additional trauma. She reports having a great deal of difficulty ambulating around at home. She feels the best when she is reclined or laying down and worse when she is weightbearing or standing. Left Leg Pain Score (Numeric/FACES): 8 - Related Data Allergies Allergy/AdvReac Type Severity Reaction Status Date / Time bacitracin [From Cortisporin] Allergy Itching Verified 06/26/21 13:12 bacitracin zinc Allergy Itching Verified 06/26/21 13:12 [From Cortisporin] erythromycin base Allergy Hives Verified 06/26/21 13:12 [Erythromycin Base] hydrocortisone Allergy Itching Verified 06/26/21 13:12 [From Cortisporin] neomycin [From Cortisporin] Allergy Itching Verified 06/26/21 13:12 neomycin sulfate Allergy Itching Verified 06/26/21 13:12 [From Cortisporin] polymyxin B Allergy Itching Verified 06/26/21 13:12 [From Cortisporin] polymyxin B sulfate Allergy Itching Verified 06/26/21 13:12 [From Cortisporin] sulfamethoxazole Allergy Vomiting Verified 06/26/21 13:12 [From Bactrim] trimethoprim [From Bactrim] Allergy Vomiting Verified 06/26/21 13:12 Home Meds: Home Meds Cholecalciferol (Vitamin D3) [Vitamin D3] 2,000 unit PO DAILY 07/15/13 [History] Latanoprost 1 drop EYEBOTH BEDTIME 02/06/20 [History] Acetaminophen [Tylenol] 650 mg PO Q6H PRN 06/02/20 [History] Alendronate Sodium [Fosamax] 70 mg PO Q7D 06/02/20 [History] Multivitamin [Multi-Vitamin Daily] 1 each PO BID 06/02/20 [History] Gabapentin 300 mg PO TID PRN #20 solution 06/26/21 [Rx] Alfuzosin [Uroxatral] 10 mg PO DAILY 07/10/21 [History] Celecoxib [CeleBREX] 200 mg PO BID 07/10/21 [History] Ketorolac [Toradol] 10 mg PO Q4HR 07/10/21 [History] L.acidoph,Paracasei, B.lactis [Probiotic] 1 each PO DAILY 07/10/21 [History] Lidocaine 2% [Xylocaine 2% Viscous] 15 ml MUCMEM Q6HR PRN 07/10/21 [History] Naltrexone 50 - 100 mg PO DAILY 07/10/21 [History] [place]-3/DHA/Epa/Fish Oil [[place]-3 Fish Oil 1,000 MG Sfgl] 1,000 mg PO DAILY 07/10/21 [History] Oxybutynin Chloride [Oxybutynin Chloride ER] 10 mg PO DAILY 07/10/21 [History] QUEtiapine [SEROquel] 50 mg PO DAILY 07/10/21 [History] Venlafaxine HCl [Venlafaxine ER] 75 mg PO DAILY 07/10/21 [History] hydrOXYzine pamoate [Hydroxyzine Pamoate] 25 mg PO QID PRN 07/10/21 [History] methocarbamoL [Robaxin] 500 mg PO QID 07/10/21 [History] tiZANidine [Zanaflex] 4 mg PO Q8HR PRN 07/10/21 [History] dexAMETHasone [Dexamethasone] 4 mg PO BID #20 tablet 07/27/21 [Rx] Past Medical History HEENT History: Reports: Hard of Hearing, Impaired Vision Other HEENT History: tympanic perforation. 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 History: Reports: None [employer] History: Reports: Musculoskeletal History: Reports: Fracture, Osteoarthritis, Other (See Below) Other Musculoskeletal History: osteopenia right wrist carpal tunnel Neurological History: Reports: Head Trauma Psychiatric History: Reports: Addiction, Depression, PTSD Other Psychiatric History: ETOH Endocrine/Metabolic History: Reports: Obesity/BMI 30+, Vitamin D Deficiency, Other (See Below) Other Endocrine/Metabolic History: thyroid nodule Hematologic History: Reports: None Other Hematologic History: macrocytosis Immunologic History: Reports: None Oncologic (Cancer) History: Reports: Basal Cell Carcinoma Dermatologic History: Reports: None - Infectious Disease History Infectious Disease History: Reports: Chicken Pox, MRSA, Shingles - Past Surgical History Head Surgeries/Procedures: Reports: None HEENT Surgical History: Reports: None Other HEENT Surgeries/Procedures: PT HAD RIGHT EAR SURGERY Cardiovascular Surgical History: Reports: None GI Surgical History: Reports: None, Colonoscopy, EGD Female Surgical History: Reports: Section, D&C Endocrine Surgical History: Reports: None Neurological Surgical History: Reports: None Musculoskeletal Surgical History: Reports: Knee Replacement, Other (See Below) Other Musculoskeletal Surgeries/Procedures:: right femur fracture Oncologic Surgical History: Reports: None Dermatological Surgical History: Reports: None Social & Family History - Family History HEENT: Reports: Glaucoma, Impaired Vision Cardiac: Reports: CAD, [place] Respiratory: Reports: None GI: Reports: GERD : Reports: None OBGYN: Reports: None Musculoskeletal: Reports: None Neurological: Reports: None Psychiatric: Reports: None Endocrine/Metabolic: Reports: Hypothyroidism Hematologic: Reports: None Immunologic: Reports: None Dermatologic: Reports: None Oncologic: Reports: None - Tobacco Use Tobacco Use Status *Q: Never Tobacco User - Caffeine Use Caffeine Use: Reports: Coffee Other Caffeine Use: 2 mountain dew daily. 2 coffee per day - Recreational Drug Use Recreational Drug Use: No ED ROS GENERAL - Review of Systems Review Of Systems: See Below Constitutional: Reports: No Symptoms Respiratory: Reports: No Symptoms Cardiovascular: Reports: No Symptoms GI/Abdominal: Reports: No Symptoms Musculoskeletal: Reports: Back Pain (Low back pain with pain radiating down her left buttock into the left leg.), Leg Pain (Left leg) Skin: Reports: No Symptoms Neurological: Reports: Difficulty Walking, Weakness (Intermittent weakness of the lower legs with the left leg giving out at times.) Psychiatric: Reports: Anxiety Hematologic/Lymphatic: Reports: No Symptoms ED EXAM,LOWER BACK PAIN/INJURY - Physical Exam Exam: See Below Exam Limited By: No Limitations General Appearance: Alert, Anxious, Mild Distress Eye Exam: Bilateral Eye: EOMI, PERRL Head: Atraumatic, Normocephalic Neck: Normal Inspection, Supple Respiratory/Chest: No Respiratory Distress, Lungs Clear, Normal Breath Sounds Cardiovascular: Normal Peripheral Pulses, Regular Rate, Rhythm, No Murmur Back Exam: Decreased Range of Motion, Vertebral Tenderness (L4-L5 and L5-S1 are tender to percussion), Other (Significant tenderness with palpation over the left sacroiliac junction and with compression of both eric. There is also significant tenderness to palpation and percussion at L4-L5 and L5-S1.). No: Muscle Spasm, Paraspinal Tenderness Extremities: Normal Range of Motion, No Pedal Edema, Normal Capillary Refill Neurological: Alert, Normal Mood/Affect, Normal Dorsiflexion, CN II-XII Intact, Normal Plantar Flexion, Oriented x 3, Difficulty Walking (Left-sided leg pain with walking) Psychiatric: Anxious Skin Exam: Warm, Dry, Intact, Normal Color, No Rash Course - Vital Signs Last Recorded V/S: Last Vital Signs Temp 36.2 C 07/27/21 19:34 Pulse 84 07/27/21 19:34 Resp 16 07/27/21 19:34 BP 100/61 07/27/21 19:34 Pulse Ox 97 07/27/21 19:34 - Orders/Labs/Meds Meds: Medications Discontinued Medications Generic Name Dose Route Start Last Admin Trade Name Freq PRN Reason Stop Dose Admin Ketorolac Tromethamine 30 mg 07/27/21 20:25 07/27/21 20:29 Ketorolac 30 Mg/Ml Sdv IM 07/27/21 20:26 30 mg ONETIME ONE Administration - Radiology Interpretation Free Text/Narrative:: I reviewed the images of the CT of the lumbar without contrast as well as the report. The report is as follows: TECHNIQUE: Axial CT cuts were performed from the inferior endplate of T11 to the sacrum. The images were formatted in the sagittal, axial and coronal planes. The T11-12 intervertebral space not fully visualized on this scan. There is no disc herniation, central spinal stenosis or foraminal stenosis. At T12-L1, there is no disc herniation, central spinal stenosis or foraminal stenosis. At L1-2, there is no disc herniation, central spinal stenosis or foraminal stenosis. At L2-3, there is severe intervertebral disc space narrowing with endplate sclerosis and degenerative cysts of the endplates. There is prominent anterior marginal osteophytic spurring on the right. There is a broad shallow disc bulge. The central canal and both neural foramina are adequately patent. At L3-4, there is moderate right hypertrophic degenerative facet arthropathy. There is a broad shallow disc bulge. There is no significant disc herniation, central spinal stenosis or foraminal stenosis. At L4-5, there is moderate right hypertrophic degenerative facet arthropathy. There is thickening of the ligamentum flavum bilaterally worse on the right side. There is a broad disc bulge. The combined effect is causing moderate central canal stenosis. The neural foramina appear adequately patent. At L5-S1, there is severe bilateral degenerative facet arthropathy. There is no significant disc herniation, such spinal stenosis or from stenosis. The sacroiliac joints appear normal. IMPRESSION: 1. Severe spondylosis at the L2-3 level without significant central canal or foraminal stenosis. 2. At L4-5, there is moderate central canal stenosis. 3. At L5-S1, there is severe bilateral degenerative facet arthropathy. 4. The sacroiliac joints appear normal. Please note that all CT scans at this facility use dose modulation, iterative reconstruction, and/or weight-based dosing when appropriate to reduce radiation dose to as low as reasonably achievable. Dictated by West Moore MD @ 07/27/2021 9:31:53 PM - Re-Assessments/Exams Free Text/Narrative Re-Assessment/Exam: 07/27/21 22:07 has significant bilateral degenerative facet disease at L5-S1 causing impingement on the nerves. In addition she has broad-based disc bulging at L4-L5. Given her current situation, I think her best option for any si gnificant improvement is a bilateral laminectomy at L5-S1. It is unlikely that she is going to experience any benefit from chiropractic manipulation, physical therapy, or even the use of muscle relaxants. We will try to calm things down with dexamethasone 4 mg twice daily for 10 days. I would like the patient to follow-up with Dr. Campbell next week to evaluate for options and to see how she is doing on the dexamethasone. She is only getting 10 days and will likely need a taper. Departure - Departure Time of Disposition: 22:15 Disposition: Home, Self-Care 01 Clinical Impression: Spinal stenosis of lumbar region at multiple levels, Lumbar arthropathy, Left lumbosacral radiculopathy - Discharge Information Instructions: Spinal Stenosis, Pinched Nerve, Lumbosacral Radiculopathy, Decision Aid - Spinal Stenosis Referrals: Liza Campbell DO [Primary Care Provider] - Care Plan Goals: Your work-up today has demonstrated that you have moderate central spinal stenosis at L4-L5 and severe bilateral facet arthropathies at L5-S1 causing severe impingement of the nerves. We are going to start you on dexamethasone 4 mg twice daily for the next 10 days. I would like you to see Dr. Campbell before this time expires as she can assess if this needs to be continued at the same level or if we can start to taper you. I do feel that you are only significant chance for improvement is bilateral laminectomies to decompress the nerve roots at L5-S1. Sepsis Event Note (ED) - Evaluation Sepsis Screening Result: No Definite Risk - Focused Exam Vital Signs: Vital Signs Temp Pulse Resp BP Pulse Ox 07/27/21 19:34 36.2 C 84 16 100/61 97 - Problem List & Annotations (1) Left lumbosacral radiculopathy SNOMED Code(s): 338433901 Code(s): M54.17 - RADICULOPATHY, LUMBOSACRAL REGION Status: Chronic Priority: Medium Current Visit: Yes (2) Lumbar arthropathy SNOMED Code(s): 624681615, 200800992 Code(s): M47.816 - SPONDYLOSIS W/O MYELOPATHY OR RADICULOPATHY, LUMBAR REGION Status: Chronic Priority: Medium Current Visit: Yes (3) Spinal stenosis of lumbar region at multiple levels SNOMED Code(s): 82908077 Code(s): M48.061 - SPINAL STENOSIS, LUMBAR REGION WITHOUT NEUROGENIC MAXIMO Status: Acute Priority: High Current Visit: Yes - Problem List Review Problem List Initiated/Reviewed/Updated: Yes
[2021-07-27] MEDS ORDERED: Dexamethasone 4 MG/ML SDV IM ONE (22:05)
== END 2021-07-27 22:41 | disposition home or self-care (01) ==
LOC: JP.ED 19:11
DX: M48.061 Spinal stenosis, lumbar region without neurogenic claudication (principal); M54.16 Radiculopathy, lumbar region; E78.00 Pure hypercholesterolemia, unspecified; E66.9 Obesity, unspecified; Z88.1 Allergy status to other antibiotic agents; Z79.899 Other long term (current) drug therapy; Z68.28 Body mass index [BMI] 28.0-28.9, adult
CPT/HCPCS: 72131; 96372; 99283-25; J1100; J1885

== ENCOUNTER 2021-12-19 17:10 | Emergency (ER) | payer MEDICARE ==
[2021-12-19] MEDS ORDERED: Ondansetron 4 MG Tab.DIS PO ONE (18:12)
[2021-12-19 18:23] VITALS: PULSE 79
[2021-12-19 18:51] VITALS: BP 143/85
== END 2021-12-19 20:34 | disposition home or self-care (01) ==
LOC: JP.ED 17:10
DX: K59.04 Chronic idiopathic constipation (principal); E66.9 Obesity, unspecified; Z68.33 Body mass index [BMI] 33.0-33.9, adult; Z79.899 Other long term (current) drug therapy; Z88.1 Allergy status to other antibiotic agents; Z88.2 Allergy status to sulfonamides
CPT/HCPCS: 74018; 74018-26; 99281; 99284-25; Q0162

== ENCOUNTER 2022-12-01 16:07 | Emergency (ER) | payer MEDICARE ==
[2022-12-01 16:19] VITALS: BP 139/70; PULSE 86
== END 2022-12-01 17:00 | disposition home or self-care (01) ==
LOC: JP.ED 16:07
DX: M17.12 Unilateral primary osteoarthritis, left knee (principal); M19.90 Unspecified osteoarthritis, unspecified site; E66.9 Obesity, unspecified; Z87.891 Personal history of nicotine dependence; Z88.1 Allergy status to other antibiotic agents; Z88.2 Allergy status to sulfonamides; Z88.8 Allergy status to other drugs, medicaments and biological substances; Z79.899 Other long term (current) drug therapy
CPT/HCPCS: 99283

== ENCOUNTER 2023-03-05 14:40 | Emergency (ER) | payer MEDICARE ==
[2023-03-05 17:40] VITALS: BP 148/87; PULSE 78
== END 2023-03-05 17:55 | disposition left against medical advice (07) ==
LOC: JP.ED 14:40
DX: Z53.21 Procedure and treatment not carried out due to patient leaving prior to being seen by health care provider (principal)

== ENCOUNTER 2023-03-05 20:17 | Emergency (ER) | payer MEDICARE ==
[2023-03-05 20:52] VITALS: BP 152/75; PULSE 90
== END 2023-03-05 22:24 | disposition home or self-care (01) ==
LOC: JP.ED 20:17
DX: M54.30 Sciatica, unspecified side (principal); E66.9 Obesity, unspecified; Z68.30 Body mass index [BMI] 30.0-30.9, adult; Z88.1 Allergy status to other antibiotic agents; Z88.8 Allergy status to other drugs, medicaments and biological substances; Z88.2 Allergy status to sulfonamides; Z79.899 Other long term (current) drug therapy
CPT/HCPCS: 99283

== ENCOUNTER 2025-02-03 06:11 | Day surgery (SDC) | payer MEDICARE ==
[2025-02-03 06:40] LABS: PLATELET COUNT,PLT 251.0 K/uL (130-375); RED BLOOD CELL COUNT 3.69 M/uL (3.77-5.24); WHITE BLOOD CELL COUNT,WBC 6.2 K/uL (3.2-11.0)
[2025-02-03] MEDS: Lactated Ringers 1,000 ML IV SCH (06:41)
[2025-02-03 06:55] LABS: BLOOD UREA NITROGEN,BUN 13.0 mg/dL (7-18); CARBON DIOXIDE,CO2 28.0 mmol/L (21-32); CHLORIDE,CL 105.0 mmol/L (100-108); CREATININE 0.7 mg/dL (0.6-1.0); EST CRCL DRUG DOSING (CG) 59.09 mL/min; ESTIMATED GFR 97.0 mL/min (>60); GLUCOSE RANDOM 93.0 mg/dL (74-106); POTASSIUM,K 3.5 mmol/L (3.6-5.2); SODIUM,NA 140.0 mmol/L (140-148)
[2025-02-03] MEDS ORDERED: fentaNYL 100 MCG/2 ML SDV ONE ×4 (07:09→09:23)
[2025-02-03] MEDS ORDERED: Propofol 200 MG/20 ML SDV ONE (07:09)
[2025-02-03] MEDS ORDERED: Midazolam 1 MG/ML 2 ML SDV ONE (07:09)
[2025-02-03] MEDS: Nozin Nasal Sanitizer NASBOTH ONE (07:39)
[2025-02-03] MEDS ORDERED: Ondansetron 4 MG/2 ML SDV ONE (08:26)
[2025-02-03] MEDS ORDERED: Dexamethasone 4 MG/ML SDV ONE (08:26)
[2025-02-03] MEDS: Ketorolac 15 MG/ML SDV IVPUSH ONE (10:17)
[2025-02-03 11:24] VITALS: BP 142/80; PULSE 85
== END 2025-02-03 12:20 | disposition home or self-care (01) ==
LOC: JP.SDS 06:11
PROVIDERS: ATTEND Specialist
DX: M75.102 Unspecified rotator cuff tear or rupture of left shoulder, not specified as traumatic (principal); M19.012 Primary osteoarthritis, left shoulder; Z79.899 Other long term (current) drug therapy
CPT/HCPCS: 01630; 29999; 36415; 80048; 85027; A9270; C1713; J0665; J0690; J1100; J1171; J1885; J2250; J2405; J2704; J3010; J7120